=== PATIENT | male | born 1990 | race Caucasian/White ===

== ENCOUNTER 2017-06-04 15:20 | Emergency (ER) | payer MEDICAID, OTHER ==
[~2017-06-04] VITALS: Ht 162.6 cm; Wt 58.2 kg
[~2017-06-04 15:20] MED LIST: ONDA8TAB9 PO; PANT-47 PO
[2017-06-04] MEDS ORDERED: acetaminophen 325mg tablet PO ONE (16:50)
[2017-06-04] MEDS ORDERED: ibuprofen tablet 400 MG TABLET PO ONE (16:50)
[2017-06-04] MEDS ORDERED: ondansetron 4mg rapidly disintigrating tab PO ONE (16:50)
[2017-06-04] MEDS ORDERED: TAM75C PO (17:09)
[2017-06-04] MEDS ORDERED: ONDA4TAB9 SL (17:20)
[2017-06-04 17:40] VITALS: BP 168/91
== END 2017-06-04 17:41 | disposition home or self-care (01) ==
LOC: ER 15:20
DX: J06.9 Acute upper respiratory infection, unspecified (principal); K21.9 Gastro-esophageal reflux disease without esophagitis; G89.29 Other chronic pain; F12.10 Cannabis abuse, uncomplicated; Z79.899 Other long term (current) drug therapy
CPT/HCPCS: 99284

== ENCOUNTER 2018-04-18 07:53 | Emergency (ER) | payer MEDICAID, OTHER ==
[~2018-04-18] VITALS: Ht 162.6 cm; Wt 67.2 kg
[2018-04-18 07:56] VITALS: BP 121/75
[2018-04-18] MEDS ORDERED: ONDA4TAB12 PO (08:44)
[2018-04-18] MEDS ORDERED: HYDR-3965 PO (08:44)
[2018-04-18] MEDS ORDERED: cephalexin 250mg capsule PO ONE (08:45)
[2018-04-18] MEDS ORDERED: ibuprofen tablet 400 MG TABLET PO ONE (08:45)
[2018-04-18] MEDS ORDERED: sulfamethoxazole/trimethoprim DS (800/160mg) tablet PO ONE (08:45)
[2018-04-18] MEDS ORDERED: CEPH-572 PO ×2 (08:45→09:01)
[2018-04-18] MEDS ORDERED: SULF1TAB49 PO ×2 (08:45→09:01)
[2018-04-18] MEDS ORDERED: AMOX-422 PO (09:01)
[2018-04-18] MEDS ORDERED: amox tr/potassium clavulanate 875/125mg TAB PO ONE (09:05)
--- NOTE | 2018-04-18 09:21 | NUR ---
Richard wrap applied to hand, cms intact, cap refill less than 3 sec. Educated patient to watch for decreased cap refill and to loosen richard wrap if needed.
== END 2018-04-18 09:50 | disposition home or self-care (01) ==
LOC: ER 07:54
DX: S60.221A Contusion of right hand, initial encounter (principal); L03.113 Cellulitis of right upper limb; F12.90 Cannabis use, unspecified, uncomplicated; K21.9 Gastro-esophageal reflux disease without esophagitis; G89.29 Other chronic pain; Z87.11 Personal history of peptic ulcer disease; Z79.899 Other long term (current) drug therapy; Y04.0XXA Assault by unarmed brawl or fight, initial encounter; Y93.89 Activity, other specified; Y92.89 Other specified places as the place of occurrence of the external cause; Y99.9 Unspecified external cause status
CPT/HCPCS: 73130; 99284

== ENCOUNTER 2022-12-11 13:42 | Emergency (ER) | payer MEDICAID ==
[~2022-12-11] VITALS: Ht 165.1 cm; Wt 57.4 kg
[~2022-12-11 13:42] MED LIST changes: +ONDA4TAB12 PO
[2022-12-11 13:47] VITALS: BP 127/89; PULSE 117; RESP 18; TEMP 98.2; O2SAT 97
[2022-12-11 14:58] LABS: BILIRUBIN,URINE NEGATIVE (Neg); CLARITY,URINE CLEAR (Clear); COLOR,URINE YELLOW (Yellow); GLUCOSE, URINE NEGATIVE (Neg); KETONES,URINE NEGATIVE (Neg); LEUKOCYTE ESTERASE ,URINE NEGATIVE (Neg); NITRITES, URINE NEGATIVE (Neg); OCCULT BLOOD,URINE NEGATIVE (Neg); PH,URINE 6.5 (4.8-8.0); PROTEIN,URINE NEGATIVE (Neg); UA COLLECTION TYPE CLN CATCH MIDSTREAM; UROBILINOGEN,URINE 0.2 E.U/dL (0.2-1.0)
[2022-12-11 15:14] LABS: BASOPHILS % (AUTO) 0.2 % (0-1); EOSINOPHILS # (AUTO) 0.1 X10'3 (0-0.9); EOSINOPHILS % (AUTO) 0.4 % (0-6); HEMATOCRIT 44.2 % (42.0-52.0); HEMOGLOBIN 15.3 g/dl (14.0-17.9); LYMPHOCYTES # (AUTO) 1.5 X10'3 (1.1-4.8); LYMPHOCYTES % (AUTO) 12.8 % (21-51); MEAN CORPUSCULAR HEMOGLOBIN 32.9 PG (27.0-31.0); MEAN CORPUSCULAR HGB CONC 34.6 g/dL (33.0-36.5); MEAN CORPUSCULAR VOLUME 95.1 FL (78-98); MEAN PLATELET VOLUME 8.7 FL (7.4-10.4); MONOCYTES # (AUTO) 0.7 X10'3 (0-0.9); MONOCYTES % (AUTO) 5.6 % (2-12); NEUTROPHILS # (AUTO) 9.8 X10'3 (1.8-7.7); PLATELET COUNT 182 X10'3 (140-440); RED BLOOD COUNT 4.65 X10'6 (4.70-6.10); RED CELL DISTRIBUTION WIDTH 12.5 % (11.5-14.5); WHITE BLOOD COUNT 12.1 X10'3 (4.5-11.0)
[2022-12-11 15:16] LABS: GLUCOSE 81 MG/DL (70-104); SODIUM 139 MMOL/L (135-145)
[2022-12-11 15:17] LABS: ALANINE AMINOTRANSFERASE 39 U/L (12-78); ALBUMIN 4.2 G/DL (3.4-5.0); ALBUMIN/GLOBULIN RATIO 1.2 (1.1-1.5); ALKALINE PHOSPHATASE 90 IU/L (46-116); ANION GAP 10 (8-16); ASPARTATE AMINO TRANSFERASE 21 U/L (10-37); BILIRUBIN,TOTAL 0.9 MG/DL (0.1-1.0); BLOOD UREA NITROGEN 13 MG/DL (7-18); BUN/CREATININE RATIO 13.8 (10.0-20.0); CALCIUM 9.2 MG/DL (8.5-10.1); CHLORIDE 102 MMOL/L (99-107); CREATININE 0.94 MG/DL (0.60-1.10); POTASSIUM 3.9 MMOL/L (3.5-5.1); TOTAL CARBON DIOXIDE 27.5 MMOL/L (24-32); TOTAL PROTEIN 7.6 G/DL (6.4-8.2); eCRCL 90 ML/MIN; eGFR > 90 ML/MIN
[2022-12-11] MEDS ORDERED: GUAI600T45 PO (15:24)
[2022-12-11] MEDS ORDERED: FLUT16SP2 BOTHNARES (15:24)
--- NOTE | 2022-12-14 14:00 | NUR ---
Patient called in to ED stating that prescriptions were not sent in to the preferred pharmacy. Called frida on [facility] at which prescription had not been called in so prescriptions for mucinex and flonase to pharmacist.
== END 2022-12-11 15:37 | disposition home or self-care (01) ==
LOC: ER 13:43
DX: J33.0 Polyp of nasal cavity (principal); R42 Dizziness and giddiness; K21.9 Gastro-esophageal reflux disease without esophagitis; F12.90 Cannabis use, unspecified, uncomplicated; Z79.899 Other long term (current) drug therapy
CPT/HCPCS: 36415; 80053; 81003; 85025; 93005; 99284

== ENCOUNTER 2023-08-13 11:15 | Emergency (ER) | payer MEDICAID ==
[~2023-08-13] VITALS: Ht 162.6 cm; Wt 55.5 kg
[~2023-08-13 11:15] MED LIST changes: +FLUT16SP2 BOTHNARES; +GUAI600T45 PO
[2023-08-13] MEDS: TETanus/Pertussis (Acell)/Diphther VAC/PF (Tdap-Adult) 0.5ml syringe IMVAC ONE (12:41)
[2023-08-13] MEDS: LIDOcaine 1% W/epiNEPHrine 1:100,000 20ml vial IJ ONE (12:47)
[2023-08-13 13:41] VITALS: BP 122/68; PULSE 68; RESP 16; TEMP 98.2; O2SAT 99
== END 2023-08-13 13:43 | disposition home or self-care (01) ==
LOC: ER 11:16
DX: S61.412A Laceration without foreign body of left hand, initial encounter (principal); K21.9 Gastro-esophageal reflux disease without esophagitis; F12.90 Cannabis use, unspecified, uncomplicated; Z79.899 Other long term (current) drug therapy; W22.8XXA Striking against or struck by other objects, initial encounter; Y93.89 Activity, other specified; Y92.89 Other specified places as the place of occurrence of the external cause; Y99.8 Other external cause status
CPT/HCPCS: 12004; 73130; 90471; 90715; 99283; A6222; A6258; A6449

== ENCOUNTER 2024-06-10 04:31 | Emergency (ER) | payer MEDICAID ==
[~2024-06-10] VITALS: Ht 162.6 cm; Wt 54.5 kg
[~2024-06-10 04:31] MED LIST changes: +ONDA-243 PO; -ONDA4TAB12 PO
[2024-06-10 05:18] LABS: BASOPHILS % (AUTO) 0.4 % (0-1); EOSINOPHILS % (AUTO) 0 % (0-6); HEMATOCRIT 45.7 % (42.0-52.0); HEMOGLOBIN 15.8 g/dl (14.0-17.9); LYMPHOCYTES # (AUTO) 0.4 X10'3 (1.1-4.8); LYMPHOCYTES % (AUTO) 14.5 % (21-51); MEAN CORPUSCULAR HEMOGLOBIN 33.4 PG (27.0-31.0); MEAN CORPUSCULAR HGB CONC 34.5 g/dL (33.0-36.5); MEAN PLATELET VOLUME 9.2 FL (7.4-10.4); MONOCYTES # (AUTO) 0.4 X10'3 (0-0.9); MONOCYTES % (AUTO) 14.7 % (2-12); NEUTROPHILS # (AUTO) 1.9 X10'3 (1.8-7.7); NEUTROPHILS % (AUTO) 70.4 % (42-75); PLATELET COUNT 140 X10'3 (140-440); RED BLOOD COUNT 4.71 X10'6 (4.70-6.10); RED CELL DISTRIBUTION WIDTH 12.9 % (11.5-14.5); WHITE BLOOD COUNT 2.6 X10'3 (4.5-11.0)
[2024-06-10 05:32] LABS: ALANINE AMINOTRANSFERASE 22 U/L (12-78); ALBUMIN 4.2 G/DL (3.4-5.0); ALBUMIN/GLOBULIN RATIO 1.2 (1.1-1.5); ALKALINE PHOSPHATASE 91 IU/L (46-116); ANION GAP 13 (8-16); ASPARTATE AMINO TRANSFERASE 23 U/L (10-37); BILIRUBIN,TOTAL 0.7 MG/DL (0.1-1.0); BLOOD UREA NITROGEN 11 MG/DL (7-18); BUN/CREATININE RATIO 15.5 (10.0-20.0); CHLORIDE 99 MMOL/L (99-107); CREATININE 0.71 MG/DL (0.60-1.10); GLUCOSE 79 MG/DL (70-104); LIPASE 15 U/L (16-77); POTASSIUM 3.6 MMOL/L (3.5-5.1); SODIUM 135 MMOL/L (135-145); TOTAL CARBON DIOXIDE 22.6 MMOL/L (24-32); TOTAL PROTEIN 7.8 G/DL (6.4-8.2); eCRCL 111 ML/MIN; eGFR > 90 ML/MIN
[2024-06-10 05:37] LABS: TOTAL CELLS COUNTED 100
[2024-06-10 05:38] LABS: PLATELET ESTIMATE DECREASED
[2024-06-10 07:51] LABS: BILIRUBIN,URINE NEGATIVE (Neg); CLARITY,URINE CLEAR (Clear); COLOR,URINE YELLOW (Yellow); GLUCOSE, URINE NEGATIVE (Neg); KETONES,URINE 40 mg/dl (Neg); LEUKOCYTE ESTERASE ,URINE NEGATIVE (Neg); NITRITES, URINE NEGATIVE (Neg); OCCULT BLOOD,URINE NEGATIVE (Neg); PROTEIN,URINE TRACE mg/dl (Neg); UROBILINOGEN,URINE 0.2 E.U/dL (0.2-1.0)
[2024-06-10 07:57] LABS: UA COLLECTION TYPE CLN CATCH MIDSTREAM
[2024-06-10 07:59] LABS: BACTERIA,URINE NONE SEEN /HPF (Neg); MUCUS STRANDS FEW /LPF (Neg); RBC,URINE 0-2 /HPF (0-2); SQUAMOUS EPITHELIAL CELL,UR NONE SEEN /LPF (FEW); WBC,URINE 0-4 /HPF (0-4)
[2024-06-10 10:33] VITALS: BP 113/67; PULSE 73; RESP 16; TEMP 98.3; O2SAT 99
[2024-06-10] MEDS ORDERED: ACET-1025 PO (11:25)
[2024-06-10] MEDS ORDERED: POLY17PO26 PO (11:25)
[2024-06-10] MEDS ORDERED: ONDA-243 PO (11:25)
[2024-06-10] MEDS ORDERED: IBUP-1985 PO (11:25)
[2024-06-10] MEDS ORDERED: SENN-302 PO (11:25)
[2024-06-10] MEDS: polyethylene glycol 3350 17gm powd pack PO STA (11:34)
[2024-06-10] MEDS: ondansetron 4mg rapidly disintigrating tab PO STA (11:34)
[2024-06-10] MEDS: sennosides/docusate sodium tablet PO ONE (11:34)
[2024-06-10] MEDS: acetaminophen 325mg tablet PO STA (11:34)
[2024-06-10] MEDS: ibuprofen tablet 400 MG TABLET PO STA (11:34)
== END 2024-06-10 11:39 | disposition home or self-care (01) ==
LOC: ER 04:32
DX: R11.2 Nausea with vomiting, unspecified (principal); K59.00 Constipation, unspecified; R10.84 Generalized abdominal pain; K21.9 Gastro-esophageal reflux disease without esophagitis; G89.29 Other chronic pain; M54.9 Dorsalgia, unspecified; F12.90 Cannabis use, unspecified, uncomplicated; Z79.52 Long term (current) use of systemic steroids; Z79.899 Other long term (current) drug therapy
CPT/HCPCS: 36415; 80053; 81001; 83690; 85007; 85025; 99284

== ENCOUNTER 2024-09-19 19:48 | Emergency (ER) | payer MEDICAID ==
[~2024-09-19] VITALS: Ht 165.1 cm; Wt 56.8 kg
[~2024-09-19 19:48] MED LIST changes: +IBUP-1985 PO; +POLY17PO26 PO; +SENN-302 PO
[2024-09-19 19:59] VITALS: TEMP 98.4
[2024-09-19] MEDS ORDERED: SULF1TAB49 PO (22:02)
--- NOTE | 2024-09-19 22:02 | Physician Documentation ---
History of Present Illness ~ Chief Complaint: Abscess Stated Complaint: BUG BIT Time Seen by MD: 21:50 Primary Medical Doctor: bel may [facility] Patient presents to the emergency room for evaluation of abscess to the volar aspect of his right forearm. He believes he has been by a spider three nights ago while sleeping. No fevers. That has wound is beginning to have redness w ith striations associated with it up his arm therefore came in to be evaluated. Tetanus Within 5 Years: Yes Medication Reconciliation Allergies: Coded Allergies: No Known Allergies (Unverified , 06/10/24) Scheduled Fluticasone Propionate (Flonase), 2 SPRAYS BOTHNARES DAILY Guaifenesin (Mucinex), 1 TAB PO Q12H Ibuprofen (Ibuprofen), 1 TAB PO Q8H Pantoprazole Sodium (PROTONIX tablet), 1 TABLET PO DAILY Polyethylene Glycol 3350 (Gavilax), 17 GM PO DAILY Sennosides/Docusate Sodium (Senna Plus 8.6-50 mg Tablet), 1 TAB PO DAILY Sulfamethoxazole/Trimethoprim (Bactrim Ds Tablet), 1 TAB PO Q12H Scheduled PRN ONDANSETRON ODT 4mg tablet (Ondansetron Odt), 1 TABLET PO Q6H PRN PRN for nausea/vomiting ONDANSETRON ODT 4mg tablet (Ondansetron Odt), 1 TAB PO Q6H PRN PRN for nausea/vomiting Ondansetron (Zofran Odt), 8 MG PO QID PRN for nausea/vomiting Past Medical History Past Medical History: GERD, Peptic Ulcer Disease, Chronic Back Pain Past Surgical History: no surgical history Alcohol Use: None Drug Use: marijuana Lives In: Home Occupation: employed Review of Systems ROS All review of systems negative except as per HPI Physical Exam Vital Signs: Temperature: 98.4, Source: Oral, Heart Rate: 72, Respiratory Rate: 16, BP: 115/77, Pulse Oximetry: 99, Weight: 56.820 Oxygen Flow Rate: 0 General Appearance General: Patient is awake, alert, oriented x4 in no acute distress and well appearing.~ Head: Normocephalic and atraumatic. Eyes: Conjunctival normal. EOMI. PERRL. ENT: Mucous membranes moist. Neck: Supple, trachea is midline. Chest: Clear to auscultation bilaterally without rales, rhonchi, or wheezes. There is no accessory muscle use or retractions. Cardiac: RRR without murmurs, gallops, or rubs. Abd: Soft, nondistended, nontender, with normoactive bowel sounds. No guarding, rebound, or rigidity. Extremities: 2 cm x 2 cm abscess to patient's right volar forearm with associated cellulitis measuring 10 cm x 10 cm. Procedures Procedures Incision and drainage: Status post informed verbal consent patient was sterilely cleaned and draped. Using 1% lidocaine with epinephrine patient was anesthetized with 1 cc to his abscess. 11. Blade utilized to perform 1 cm incision with expression of 1 cc of purulent drainage. Wound was de loculated with sterile probe. Bandage with antibiotic ointment placed. Patient tolerated procedure well without complication. Total time of procedure 5 minutes Progress Results/Orders Results/Orders Orders - SAMI FENTON MD Dressing Orders (09/19/24 21:57) Completed Orders - SAMI FENTON MD Tetanus/Pertuss/Diph Acell/Pf (Boostrix (09/19/24 22:00) Bacitracin Ointment (Bacitracin Ointment (09/19/24 22:00) Ondansetron Disint. Tablet (Zofran Odt T (09/19/24 22:00) Sulfamethox/Trimetho. Ds Tab (Septra Ds (09/19/24 22:00) Medications Received in ER Medications (Trade) Dose Ordered Sig/Elias Route PRN Reason Start Time Stop Time Status Last Admin Dose Admin (Boostrix vaccine syringe) 0.5 ml ONCE ONCE IMVAC 09/19/24 22:00 09/19/24 22:01 DC 09/19/24 22:09 0.5 ML (bacitracin ointment) 1 applic ONCE ONCE TP 09/19/24 22:00 09/19/24 22:01 DC 09/19/24 22:10 1 APPLIC (Zofran ODT tablet) 4 mg ONCE ONCE PO 09/19/24 22:00 09/19/24 22:01 DC 09/19/24 22:08 4 MG (Septra DS tab) 2 tab ONCE ONCE PO 09/19/24 22:00 09/19/24 22:01 DC 09/19/24 22:08 2 TAB Vital Signs 09/19/24 19:59 Temp 98.4 Pulse 72 Resp 16 B/P (MAP) 115/77 Pulse Ox 99 O2 Flow Rate 0 Medical Decision Making Findings Patient presents to the emergency room with abscess as per HPI. Differentials include but are not limited to abscess, cellulitis, foreign body, necrotizing fasciitis. Physical exam is reassuring for no foreign body or crepitus and he had not feel emergent labs or imaging is necessary. Tetanus made to be up-to-date and antibiotics initiated. ER precautions discussed. Departure Disposition: HOME / SELF CARE / HOMELESS Impression: Primary Impression: Abscess Additional Impression: Cellulitis Condition: Stable Discharge Instructions: Abscess, Care After, Cellulitis, Adult, [id number] Referrals: NO PRIMARY CARE PROVIDER (PCP) Prescriptions Sulfamethoxazole/Trimethoprim (Bactrim Ds Tablet) 800 Mg-160 Mg Tablet 1 TAB PO Q12H for 10 Days, #20 TAB Prov: SAMI FENTON MD 09/19/24 Education Educated: Patient Educated regarding: diagnosis, treatment, need for follow up Signature Scribe Signature: No scribe Attestation: The note accurately reflects work and decisions made by me.Sami Fenton MD 09/19/24 22:02 SAMI FENTON MD Sep 19, 2024 22:02
[2024-09-19] MEDS: ondansetron 4mg rapidly disintigrating tab PO ONE (22:08)
[2024-09-19] MEDS: sulfamethoxazole/trimethoprim DS (800/160mg) tablet PO ONE (22:08)
[2024-09-19] MEDS: TETanus/Pertussis (Acell)/Diphther VAC/PF (Tdap-Adult) 0.5ml syringe IMVAC ONE (22:09)
[2024-09-19] MEDS: bacitracin 15gm ointment TP ONE (22:10)
[2024-09-19 22:18] VITALS: BP 116/76; PULSE 70; RESP 16; O2SAT 99
== END 2024-09-19 22:20 | disposition home or self-care (01) ==
LOC: ER 19:48
DX: L02.511 Cutaneous abscess of right hand (principal); L03.113 Cellulitis of right upper limb; K21.9 Gastro-esophageal reflux disease without esophagitis; F12.90 Cannabis use, unspecified, uncomplicated; Z79.899 Other long term (current) drug therapy
CPT/HCPCS: 10060; 90471; 90715; 99284; A6449